=== PATIENT | male | born 1970 | race Caucasian/White ===

== ENCOUNTER 2019-07-27 01:05 | Emergency (ER) | payer OTHER ==
[~2019-07-27] VITALS: Ht 185.4 cm; Wt 72.6 kg
--- NOTE | 2019-07-27 01:21 | NUR ---
[facility] Nurse Note: pt presents to ED c/o "soft stools" x 6 days. pt denies diarrhea but does note that his stool is softer than normal and he had 2 BMs today whic is atypical for him. pt deneis N/V/D or abd p Addendum: 07/27/19 at 0122 by QLE pt denies abd px, describes it as more of a "discomfort" in the lower abd. states that he recently traveled to [facility] and drank tap water there. no other complaints at this time
[2019-07-27 01:22] VITALS: BP 129/79
--- NOTE | 2019-07-27 01:22 | NUR ---
ED Nurse Note: pt denies blood in stool, reports taking 1 pepto-bismol pill about an hour ago without relief of symptoms. abd discomfort is constantly there, nothing has made it better
[2019-07-27] MEDS ORDERED: Azithromycin 250mg tab ORAL ONE (01:45)
[2019-07-27] MEDS ORDERED: IMODIUM2 MG ORAL (01:49)
[2019-07-27] MEDS ORDERED: ZITHROMAX250 MG ORAL (01:49)
--- NOTE | 2019-07-27 02:09 | Emergency Room Report ---
History of Present Illness General Chief Complaint: Abdominal Pain Source: Patient Present Illness [facility] This a 49-year-old male with no past medical history. He presents with complaint of diarrhea. He just got back from [facility]. He said he did drink the water there. He had loose stool and intermittent diarrhea but now tonight is watery diarrhea and has been profuse. Onset for 16 hours. No fever chills. Some slight cramping pain. Denies any other complaint. Did take some Pepto- Bismol tonight. No vomiting. Pain is 5 out of 10. No other complaint. No recent antibiotics use. Allergies: Coded Allergies: No Known Allergies (Unverified , 07/27/19) Patient History Past Medical History: see triage record, old chart reviewed Past Surgical History: none Pertinent Family History: none Social History: Denies: smoking Immunizations: other Reviewed Nursing Documentation: PMH: Agreed; PSxH: Agreed Review of Systems Eye: Denies: eye pain, blurred vision ENT: Denies: ear pain, nose congestion, throat swelling Respiratory: Denies: cough, shortness of breath Cardiovascular: Denies: chest pain, palpitations Gastrointestinal: Reports: diarrhea; Denies: abdominal pain, nausea, vomiting Musculoskeletal: Denies: back pain, joint pain Skin: Denies: rash Neurological: Denies: headache, numbness Endocrine: Denies: increased thirst, increased urine Hematologic/Lymphatic: Denies: easy bruising All Other Systems: negative except mentioned in HPI Physical Exam Vital Signs Date Time Temp Pulse Resp B/P (MAP) Pulse Ox O2 Delivery O2 Flow Rate FiO2 07/27/19 01:15 98.2 57 18 129/79 (96) 96 Room Air Vitals normal Sp02 EP Interpretation: reviewed, normal General Appearance: well appearing, no apparent distress, alert Head: normocephalic, atraumatic Eyes: bilateral eye PERRL, bilateral eye EOMI ENT: hearing grossly normal, normal pharynx Neck: full range of motion, supple, no meningismus Respiratory: chest non-tender, lungs clear, normal breath sounds Cardiovascular #1: regular rate, rhythm, no murmur Gastrointestinal: non tender, no mass, no organomegaly, no bruit, non-distended , abnormal bowel sounds - Increased Musculoskeletal: back normal, normal range of motion, gait/station normal Psychiatric: mood/affect normal Medical Decision Making Diagnostic Impression: Primary Impression: Travelers' diarrhea ER Course Patient presents with symptoms consistent with traveler's diarrhea. No evidence of acute abdomen or obstruction. He looks well-hydrated. Dose of antibiotics given here. Will discharge home. Last Vital Signs Date Time Temp Pulse Resp B/P (MAP) Pulse Ox O2 Delivery O2 Flow Rate FiO2 07/27/19 01:15 98.2 57 18 129/79 (96) 96 Room Air Status: unchanged Disposition: HOME, SELF-CARE Condition: Stable Scripts Loperamide HCl (Loperamide) 2 Mg Capsule 2 MG ORAL Q4H for diarrhea, #15 CAP 0 Refills Prov: Chadd Jacques MD 07/27/19 Azithromycin* (ZITHROMAX*) 250 Mg Tablet 250 MG ORAL DAILY, #4 TAB Prov: Chadd Jacques MD 07/27/19 Additional Instructions: Increase fluids. May take Pepto Bismol. Follow-up with your doctor in 7 days if not better. Return if worse. Chadd Jacques MD Jul 27, 2019 02:09
[2019-07-27 02:15] VITALS: BP 129/79
--- NOTE | 2019-07-27 02:15 | NUR ---
ED Nurse Note: Pt cleared by health care Provider for discharge. DC instructions/prescription was given and explained to pt who verbalized understanding of teachings. All medical devices such as ID band removed. Pt is AAO x4, ambulatory and left with all personal belongings.
== END 2019-07-27 02:15 | disposition home or self-care (01) ==
LOC: EMR 01:43
DX: R19.7 Diarrhea, unspecified (principal)
CPT/HCPCS: 99282